=== PATIENT | female | born 1970 | race Two or more races ===

== ENCOUNTER → 2024-08-23 | Emergency (ER) | payer OTHER ==
[~2024-08-23] VITALS: Ht 160 cm; Wt 72.1 kg
[~2024-08-23] MED LIST: ACETAMINOPHEN 500 MG GEL..CAP PO ONE; BREO ELLIPTA 21 EACH IH; BUTALB-ACETAMI1 EACH PO; BUTALB/ACETAMINOPHEN/CAFFEINE 1 TAB TABLET PO ONE; DEXAMETHASONE SODIUM PHOSPHATE 4 MG/ML VIAL IM ONE; ONDANSETRON HCL 2 MG/ML VIAL IM ONE; ONDANSETRON HCL 2 MG/ML VIAL ONE; ZOFRAN8 MG PO
[2024-08-23 09:43] LABS: HEMATOCRIT 39.1 % (36.0-45.00); HEMOGLOBIN 12.3 g/dL (12.0-15.00); MEAN CELL VOLUME 77.6 fL (80.00-100.00); MEAN CORPUSCULAR HEMOGLOBIN 24.5 pg (27.00-32.0); MEAN CORPUSCULAR HGB CONC 31.5 g/dl (32.0-36.0); PLATELET COUNT 355 K/uL (150-450); RED BLOOD COUNT 5.04 M/uL (4.00-6.00); RED CELL DISTRIBUTION WIDTH 19.6 % (11.5-14.5)
[2024-08-23 10:33] LABS: ALBUMIN 4.1 gm/dL (3.4-5.0); BILIRUBIN TOTAL 0.46 mg/dL (0.3-1.2); CALCIUM 9.6 mg/dL (8.5-10.1); CREATININE SERUM 0.83 mg/dL (0.55-1.02); GFR 71.37; GLOBULINA 3.6 G/DL (2.4-3.5); POTASSIUM 4.88 mEq/L (3.5-5.1); TOTAL PROTEIN 7.7 gm/dL (6.4-8.2)
== END | disposition home or self-care (01) ==
LOC: ER 08:11
PROVIDERS: Preventive Medicine Public Health & General Preventive Medicine
DX: G43.909 Migraine, unspecified, not intractable, without status migrainosus (principal); R42 Dizziness and giddiness; Z88.6 Allergy status to analgesic agent; Z87.09 Personal history of other diseases of the respiratory system

== ENCOUNTER 2025-04-04 12:42 | Emergency (ER) | payer OTHER ==
[~2025-04-04] VITALS: Ht 160 cm; Wt 74.8 kg
[~2025-04-04 12:42] MED LIST changes: -ACETAMINOPHEN 500 MG GEL..CAP PO ONE; -BUTALB/ACETAMINOPHEN/CAFFEINE 1 TAB TABLET PO ONE; -DEXAMETHASONE SODIUM PHOSPHATE 4 MG/ML VIAL IM ONE; -ONDANSETRON HCL 2 MG/ML VIAL IM ONE; -ONDANSETRON HCL 2 MG/ML VIAL ONE
[2025-04-04] MEDS ORDERED: DEXAMETHASONE SODIUM PHOSPHATE 4 MG/ML VIAL IM STA (13:27)
[2025-04-04] MEDS ORDERED: ORPHENADRINE CITRATE 30 MG/ML AMPUL IM STA (13:27)
[2025-04-04] MEDS ORDERED: MEDROLPACK PO (16:49)
[2025-04-04] MEDS ORDERED: NORFLEX100MG PO (16:49)
== END 2025-04-04 18:31 | disposition home or self-care (01) ==
LOC: ER 12:43
DX: M54.50 Low back pain, unspecified (principal); Z88.6 Allergy status to analgesic agent; M62.838 Other muscle spasm